=== PATIENT | female | born 1985 | race Caucasian/White ===

== ENCOUNTER 2022-05-22 10:20 | Emergency (ER) | payer SELFPAY ==
[~2022-05-22] VITALS: Ht 157.5 cm; Wt 59.0 kg
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
[2022-05-22] MEDS ORDERED: KETOROLAC TROMETHAMINE 15 MG INJ ONE (11:36)
[2022-05-22] MEDS ORDERED: KETOROLAC TROMETHAMINE 15 MG INJ IM ONE (11:45)
[2022-05-22 11:46] LABS: *URINE HCG, QUAL NEG (NEGATIVE)
--- NOTE | 2022-05-22 11:50 | NUR ---
Pt signed a document that she's not .
[2022-05-22 13:34] VITALS: BP 116/74
== END 2022-05-22 12:45 | disposition home or self-care (01) ==
LOC: ER 10:20
DX: M54.9 Dorsalgia, unspecified (principal); M54.2 Cervicalgia
CPT/HCPCS: 99284; 84703; 72050; 72110; 96372; J1885; A4663